=== PATIENT | female | born 1995 | race American Indian/Alaskan Native ===

== ENCOUNTER 2020-05-08 13:25 | Inpatient (IN) | payer OTHER ==
[~2020-05-08] VITALS: Ht 157.5 cm; Wt 65.3 kg
[2020-05-08] MEDS ORDERED: PRENATAL TABLE1 EAC1 PO (14:13)
== END 2020-05-10 10:23 | disposition home or self-care (01) | DRG 832 ==
LOC: OBS/DEL 13:25 → LDR 20:41
PROVIDERS: ADMIT Obstetrics & Gynecology; ATTEND Obstetrics & Gynecology
PROC: 4A1HXFZ Monitoring of Products of Conception, Cardiac Rhythm, External Approach (ICD-10-PCS; principal; 2020-05-08)
DX: O47.03 False labor before 37 completed weeks of gestation, third trimester (principal); O23.33 Infections of other parts of urinary tract in pregnancy, third trimester; Z3A.30 30 weeks gestation of pregnancy

== ENCOUNTER 2020-05-18 07:30 | Inpatient (IN) | payer OTHER ==
[~2020-05-18] VITALS: Ht 157.5 cm; Wt 65.3 kg
[~2020-05-18 07:30] MED LIST: PRENATAL TABLE1 EAC1 PO
== END 2020-05-25 13:41 | disposition home or self-care (01) | DRG 832 ==
LOC: OBS/DEL 07:30 → LDR 09:30 → OB/GYN 09:30
PROVIDERS: ADMIT Obstetrics & Gynecology; ATTEND Obstetrics & Gynecology
PROC: 4A1HXFZ Monitoring of Products of Conception, Cardiac Rhythm, External Approach (ICD-10-PCS; principal; 2020-05-18)
DX: O47.03 False labor before 37 completed weeks of gestation, third trimester (principal); O23.43 Unspecified infection of urinary tract in pregnancy, third trimester; Z3A.32 32 weeks gestation of pregnancy; Z20.822 Contact with and (suspected) exposure to COVID-19

== ENCOUNTER 2020-06-24 10:15 | Inpatient (IN) | payer OTHER ==
[~2020-06-24] VITALS: Ht 157.5 cm; Wt 3.2 kg
== END 2020-07-13 15:01 | disposition home or self-care (01) | DRG 788 ==
LOC: O/R 07-10 02:36 → LDR 07-10 02:36 → OB/GYN 07-10 02:36 → LDR 07-10 02:44 → O/R 07-10 14:24 → OB/GYN 07-10 18:20 → LDR 07-13 10:15 → OB/GYN 07-13 15:01
PROVIDERS: ADMIT Obstetrics & Gynecology; ATTEND Obstetrics & Gynecology
PROC: 10907ZC Drainage of Amniotic Fluid, Therapeutic from Products of Conception, Via Natural or Artificial Opening (ICD-10-PCS; 2020-07-10)
PROC: 4A1HXFZ Monitoring of Products of Conception, Cardiac Rhythm, External Approach (ICD-10-PCS; 2020-07-10)
PROC: 10D00Z1 Extraction of Products of Conception, Low, Open Approach (ICD-10-PCS; principal; 2020-07-10 14:00)
DX: O62.1 Secondary uterine inertia (principal); Z3A.39 39 weeks gestation of pregnancy; Z37.0 Single live birth; Z20.822 Contact with and (suspected) exposure to COVID-19